=== PATIENT | male | born 1980 | race Caucasian/White ===

== ENCOUNTER 2022-01-14 11:29 | Emergency (ER) | payer SELFPAY ==
[2022-01-14 11:30] VITALS: BP 133/79; PULSE 99; RESP 18; TEMP 36.6; O2SAT 100; BMI 28.1
== END 2022-01-14 23:59 | disposition left against medical advice (07) ==
LOC: ED 11:49
PROVIDERS: PCP Family Medicine
DX: Z53.21 Procedure and treatment not carried out due to patient leaving prior to being seen by health care provider (principal)

== ENCOUNTER → 2022-10-14 | Outpatient (CLI) | payer MEDICAID, SELFPAY ==
--- NOTE | 2022-10-14 11:15 | MASS_PTH ---
PATIENT: PEDRO ATKINSON LOC: [facility] U#:[id number] AGE/SX: 42/M ROOM: RE10/14/[address]: Dr. Maycol Cordero MD : 1980 BED: DIS: 10/14/2022 SPEC #: [id number] RECD: 10/14/22 14:53 STATUS: GEORGINA CARLOS #: [id number] CRISTINO: 10/14/22 11:[address]: Maycol Cordero DEPT: SURGICAL PATHOLOGY RECD BY: Shweta Bethea ENTERED: 10/15/22 07:56 SP TYPE: Mass OTHR DR: Dr. Theron Mckinnon MD [facility] Tissues: A - Neck, NOS B - Forehead, NOS Procedures: Surgery Specimen Level IV HEADER OPERATION: Excision, right neck mass and forehead mass PRE-OP DIAGNOSIS: Localized swelling, mass/lump, head/neck R22.0 TISSUE SUBMITTED: A. Right neck mass, biopsy, B. Forehead mass, biopsy MICROSCOPIC DIAGNOSIS A. Right neck mass, biopsy: Chronic inflammation and foreign body giant cell reaction. Negative for malignancy. See comment. B. Forehead mass, biopsy: Epidermal inclusion cyst. /SJ 10/16/22 COMMENT A. Correlation with clinical findings and appropriate follow up are necessary. MICROSCOPIC DESCRIPTION Slides are reviewed. GROSS DESCRIPTION A Received in fixative is one container labeled with the patient's name and designated right neck mass. The specimen consists of a piece of juarez pink soft tissue measuring 0.5 x 0.5 x 0.5 cm. The specimen is inked, bisected and submitted entirely in one cassette. B. Received in fixative is one container labeled with the patient's name and designated forehead mass. The specimen consists of piece of juarez white skin with underlying soft tissue measuring 0.5 x 0.5 x 0.3 cm. The specimen is inked and submitted entirely in one cassette. /SPEEDY:rita 10/15/2022 TC:5 CPT:52050, 17408
== END | disposition home or self-care (01) ==
LOC: LABSPEC 15:17
PROVIDERS: PCP Family Medicine; Visit Provider Otolaryngology
DX: R22.0 Localized swelling, mass and lump, head (principal)
CPT/HCPCS: 88305